=== PATIENT | male | born 1930 | race Caucasian/White ===

== ENCOUNTER → 2017-07-25 | Outpatient (CLI) | payer MEDICARE, OTHER ==
[~2017-07-25] MED LIST: ASPI81CH; ATORVASTATIN CA80 MG; CYAN1000 PO; ENAL20; ENAL5 PO; FOLI1 PO; LANS30EC; LANS30EC PO; MONTELUKAST SOD10 MG; Metoprolol Succ25 MG; NITR.4SL SL; PERIDEX15 ML MM; SPIHYD PO; TAMSULOSIN HCL0.4 MG
[2017-07-25 10:24] LABS: Anion Gap 6 mmol/L (6-16); Blood Urea Nitrogen 7 mg/dL (8-24); CO2, Blood 29 mmol/L (21-32); Calcium, Blood 8.6 mg/dL (8.5-10.1); Chloride, Blood 99 mmol/L (98-108); Creatinine, Blood 0.87 mg/dL (0.60-1.20); Glomerular Filtration Rate >60 (60-); Glucose, Blood 126 mg/dL (70-99); Sodium, Blood 134 mmol/L (136-145)
== END ==
LOC: LAB SHORT 10:14
PROVIDERS: Physician Assistant Surgical
DX: R60.0 Localized edema (principal)
CPT/HCPCS: 80048; 83880

== ENCOUNTER 2019-02-08 12:17 | Day surgery (SDC) | payer MEDICARE, OTHER ==
[~2019-02-08] VITALS: Ht 175.3 cm; Wt 66.5 kg
[~2019-02-08 12:17] MED LIST changes: +ATORVASTATIN CA80 MG PO; +Aspirin EC81 MG PO; +B-121000 MC2 PO; +Ipratropium Bro30 ML; +LEVSOD25 PO; +METO25ER PO; +OMEP20ER PO; +TAMS.4ER PO
[2019-02-08] MEDS ORDERED: FURO20 (13:02)
[2019-02-08] MEDS ORDERED: POTA10T (13:03)
== END 2019-02-08 14:42 | disposition home or self-care (01) ==
LOC: ORSCSDS 12:17
PROVIDERS: Ophthalmology
PROC: 08BP0ZZ Excision of Left Upper Eyelid, Open Approach (ICD-10-PCS; principal; 2019-02-08 13:45)
PROC: 08BN0ZZ Excision of Right Upper Eyelid, Open Approach (ICD-10-PCS; principal; 2019-02-08 13:45)
PROC: 080PXZZ Alteration of Left Upper Eyelid, External Approach (ICD-10-PCS; principal; 2019-02-08 13:45)
PROC: 080NXZZ Alteration of Right Upper Eyelid, External Approach (ICD-10-PCS; principal; 2019-02-08 13:45)
DX: H02.834 Dermatochalasis of left upper eyelid (principal); H02.831 Dermatochalasis of right upper eyelid; H02.423 Myogenic ptosis of bilateral eyelids; I25.10 Atherosclerotic heart disease of native coronary artery without angina pectoris; I10 Essential (primary) hypertension; Z87.891 Personal history of nicotine dependence; Z79.899 Other long term (current) drug therapy; Z79.82 Long term (current) use of aspirin
CPT/HCPCS: J2704; J3010

== ENCOUNTER 2021-02-14 12:39 | Emergency (ER) | payer OTHER, MEDICARE ==
[~2021-02-14] VITALS: Ht 175.3 cm; Wt 63.5 kg
[~2021-02-14 12:39] MED LIST changes: +FURO20; +POTA10T
[2021-02-14] MEDS ORDERED: ALBU90OI INH (13:15)
[2021-02-14] MEDS ORDERED: IPRATROPIUM BRO30 ML (13:17)
[2021-02-14] MEDS ORDERED: OXYM.05NI (13:18)
[2021-02-14] MEDS ORDERED: SPIR25 PO (13:19)
[2021-02-14] MEDS ORDERED: Norco 5-325 Ta1 EACH PO ×2 (15:38→15:45)
== END 2021-02-14 15:56 | disposition home or self-care (01) ==
LOC: ER 12:39
DX: S22.31XA Fracture of one rib, right side, initial encounter for closed fracture (principal); Z79.899 Other long term (current) drug therapy; Z79.82 Long term (current) use of aspirin; W11.XXXA Fall on and from ladder, initial encounter
CPT/HCPCS: 71101; 73030; 99283-25; A9270

== ENCOUNTER 2021-12-09 15:56 | Observation (INO) | payer OTHER, MEDICARE ==
[~2021-12-09] VITALS: Ht 172.7 cm; Wt 59.0 kg
[~2021-12-09 15:56] MED LIST changes: +ALBU90OI INH; -B-121000 MC2 PO; +B-121000 MC7 PO; +IPRATROPIUM BRO30 ML; +Norco 5-325 Ta1 EACH PO; +OXYM.05NI; +SPIR25 PO
[2021-12-09 17:03] LABS: BASOPHILS ABSOLUTE AUTO 0.01 K/mm3 (0.00-0.23); BASOPHILS PERCENT AUTO 0 % (0-2); EOSINOPHILS ABSOLUTE AUTO 0.05 K/mm3 (0.00-0.68); EOSINOPHILS PERCENT AUTO 1 % (0-6); Hematocrit 38.5 % (37.0-53.0); Hemoglobin 13.1 g/dL (13.5-17.5); IMMATURE GRAN ABSOLUTE AUTO 0.02 K/mm3 (0.00-0.10); IMMATURE GRAN PERCENT AUTO 0 % (0-1); LYMPHOCYTES ABSOLUTE AUTO 0.64 K/mm3 (0.84-5.20); LYMPHOCYTES PERCENT AUTO 8 % (21-46); MONOCYTES ABSOLUTE AUTO 0.96 K/mm3 (0.16-1.47); MONOCYTES PERCENT AUTO 12 % (4-13); Mean Corpuscular HGB 31.6 pg (26.0-34.0); Mean Corpuscular Volume 93 fL (80-100); Mean Platelet Volume 8.8 fL (9.1-12.4); NEUTROPHILS PERCENT AUTO 80 % (41-73); Platelet Count 101 K/mm3 (150-400); RDW Coefficient Variation 12.8 % (11.7-14.2); RDW Standard Deviation 43.8 fL (35.1-46.3); Red Blood Cell Count 4.14 M/mm3 (4.30-5.90); White Blood Cell Count 8.18 K/mm3 (4.00-11.30)
[2021-12-09 17:17] LABS: Albumin, Blood 3.2 g/dL (3.4-5.0); Albumin/Globulin Ratio 0.9 (0.8-1.8); Bilirubin, Total 1.1 mg/dL (0.1-1.0); Bun/Creatinine Ratio 16.2 (12.0-20.0); Calcium, Blood 8.4 mg/dL (8.5-10.1); Creatinine, Blood 0.74 mg/dL (0.60-1.20); Globulin, Blood 3.6 g/dL (2.2-4.0); Total Protein, Blood 6.8 g/dL (6.4-8.2)
[2021-12-09 18:37] LABS: Source, Urine Voided
[2021-12-09 18:50] LABS: Appearance, Urine Clear (Clear); Bilirubin, Urine Neg (Neg); Blood, Urine Neg (Neg); Color, Urine Yellow (P-Yellow); Glucose Qualitative, Urine Neg (Neg); Ketones, Urine Neg (Neg); Leukocyte Esterase, Urine Neg (Neg); Nitrite, Urine Neg (Neg); Protein, Urine 1+ (Neg); Urobilinogen, Urine 1+ (Normal)
[2021-12-09] MEDS ORDERED: ALEVAZOL56.7 G1 TOP (21:12)
[2021-12-09] MEDS ORDERED: ARTIFICIAL TEA1 EAC1 BOTHEYES (21:14)
[2021-12-09] MEDS ORDERED: Enalapril Maleat5 MG PO (21:15)
[2021-12-09] MEDS ORDERED: METO25ER PO (21:16)
[2021-12-09] MEDS ORDERED: Crestor20 MG PO (21:17)
[2021-12-09] MEDS ORDERED: Selenomax200 MCG PO (21:17)
[2021-12-09] MEDS ORDERED: THERA GESIC TOP (21:18)
[2021-12-09] MEDS ORDERED: TAMS.4ER PO (21:18)
[2021-12-09] MEDS ORDERED: VANICREAM TOP (21:19)
[2021-12-09 23:08] LABS: Source, Urine Clean Catch
[2021-12-09 23:11] LABS: Bilirubin, Urine Neg (Neg); Blood, Urine Neg (Neg); Glucose Qualitative, Urine Neg (Neg); Ketones, Urine 1+ (Neg); Leukocyte Esterase, Urine Neg (Neg); Nitrite, Urine Neg (Neg); Protein, Urine Neg (Neg); Urobilinogen, Urine 1+ (Normal)
[2021-12-10 00:19] LABS: Appearance, Urine Clear (Clear); Color, Urine Yellow (P-Yellow)
[2021-12-10 06:57] LABS: Creatine Kinase MB 3.6 ng/mL (0.0-3.6)
[2021-12-10 12:45] LABS: Creatine Kinase MB 2.7 ng/mL (0.0-3.6); Creatine Kinase MB Index 4.2 (0.0-4.0)
--- NOTE | 2021-12-10 14:17 | NUR ---
Echocardiogram performed.
--- NOTE | 2021-12-10 15:00 | NUR ---
ORTHOSTATICS: PATIENT TOLERATED MORNING ORTHOSTATICS WELL WITHOUT REPORT OF SHORTNESS OF BREATH OR DIZZINESS. ORTHOS FOLLOWS AT 09:00: LYING 105/70 HR OF 95; SITTING 94/64 WITH HR OF 88; STANDING 86/61 WITH HR OF 97. IN THE AFTERNOON AROUND 1500 , PT WORKED WITH THE PATIENT AND OBTAINED THE FOLLOWING ORTHOSTATIC VITALS: LYING 113/64 HR 104; SITTING 130/67 HR OF 106; STANDING 101/63 AND HR OF 112. THE PATIENT DENIED DIZZINESS OR SHORTNESS OF BREATH.
[2021-12-10] MEDS ORDERED: LEVSOD25 PO (15:37)
[2021-12-10] MEDS ORDERED: OMEP20ER PO (15:39)
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
--- NOTE | 2021-12-10 17:44 | NUR ---
END OF SHIFT SUMMARY: PATIENT DENIED DIZZINESS, SHORTNESS OF BREATH OR CHEST PAIN DURING THE SHIFT. PATIENT REPORTED FEELING MUSCLE TENDERNESS IN THE LEFT SHOULDER AND UPPER LEFT BACK. NO RADIATION OF PAIN. PATIENT CONVERTED TO NORMAL SINUS RHYTHM PER [place] AROUND [id number]. EKG COMPLETED VERIFYING NSR. PATIENT WORKED WITH PT AND OT WITHOUT SYMPTOMS OF HYPOTENSION OR AFIB. SEE NOTE FOR ORTHOSTATIC VITALS. PATIENT ABLE TO AMBULATE WITH FWW AND SBA. PATIENT REPORTS A REACTION THAT OCCURS SOMETIMES AFTER EATING. PATIENT REPORTS TEARING EYES AND IRRITATED THROAT. PATIENT REPORTS HE JUST HAS TO "WORK THROUGH IT". PATIENT HAD A DRY, IRRITATED COUGH UNTIL IT RESOLVED. DR. FARRELL AWARE. PATIENT LABILE AND UPSET ABOUT RECENT BREAKUP WITH GIRLFRIEND. SPRITUAL CARE ROUNDED ON PATIENT. PATIENT CALM THROUGH THE AFTERNOON.
[2021-12-11 04:11] LABS: BASOPHILS ABSOLUTE AUTO 0.02 K/mm3 (0.00-0.23); BASOPHILS PERCENT AUTO 0 % (0-2); EOSINOPHILS ABSOLUTE AUTO 0.27 K/mm3 (0.00-0.68); EOSINOPHILS PERCENT AUTO 4 % (0-6); Hemoglobin 13.2 g/dL (13.5-17.5); IMMATURE GRAN ABSOLUTE AUTO 0.02 K/mm3 (0.00-0.10); IMMATURE GRAN PERCENT AUTO 0 % (0-1); LYMPHOCYTES ABSOLUTE AUTO 1.11 K/mm3 (0.84-5.20); LYMPHOCYTES PERCENT AUTO 17 % (21-46); MONOCYTES ABSOLUTE AUTO 0.64 K/mm3 (0.16-1.47); MONOCYTES PERCENT AUTO 10 % (4-13); Mean Corpuscular HGB 31.7 pg (26.0-34.0); Mean Corpuscular HGB Conc 33.8 g/dL (31.5-36.5); Mean Corpuscular Volume 94 fL (80-100); Mean Platelet Volume 8.9 fL (9.1-12.4); NEUTROPHILS ABSOLUTE AUTO 4.66 K/mm3 (1.96-9.15); NEUTROPHILS PERCENT AUTO 69 % (41-73); Platelet Count 118 K/mm3 (150-400); RDW Coefficient Variation 12.8 % (11.7-14.2); RDW Standard Deviation 43.6 fL (35.1-46.3); Red Blood Cell Count 4.16 M/mm3 (4.30-5.90); White Blood Cell Count 6.72 K/mm3 (4.00-11.30)
--- NOTE | 2021-12-11 04:27 | NUR ---
SUMMARY PT SLEPT ON AND OFF T/O THE NIGHT. OOB MANY TIMES TO VOID WITH INCREASING URGENCY. NO OTHER ACUTE CHANGES NOTED. PT HAS NO SYNCOPAL EPISODES AND HAS DENIED ANY SOB OR DIZZINESS. PT RESTING QUIETLY IN ROOM WITH BED ALARM ON, CALL LIGHT IN REACH.
[2021-12-11 04:39] LABS: Bun/Creatinine Ratio 12.4 (12.0-20.0); Calcium, Blood 8.2 mg/dL (8.5-10.1); Creatinine, Blood 0.72 mg/dL (0.60-1.20); Potassium, Blood 3.7 mmol/L (3.5-5.5); Thyroid Stimulating Hormone 4.22 uIU/mL (0.360-4.800)
--- NOTE | 2021-12-11 05:50 | NUR ---
0545 PT IS HAVING DIFFICULTY VOIDING. PT TAKES FLOMAX AT HOME. PT ALSO HAD FREQUENT EPISODES OF SINUS TACH THROUGHOUT THE SHIFT. THE ST OCCURRED MOSTLY WHEN PT WOULD STAND TO VOID. THIS AM PULSE RATE IS HOLDING IN 100'S WHILE LAYING IN BED. TM
--- NOTE | 2021-12-11 06:27 | NUR ---
0627 [employer] CALLED AND INFORMED THAT PT IS SUSTAINING IN 130'S THIS AM. DR KOWALSKI WAS CALLED AND ORDERED IV FLUIDS. DR KOWALSKI STATES PT MOST LIKELY IN A-FIB. DR KOWALSKI ASKED TO HAVE TELEMETRY CONFIRM PT NOT IN A-FIB. WCTM AND PASS ON TO DAY SHIFT.
[2021-12-11] MEDS ORDERED: VITAMIN D31000 UNI1 PO (10:49)
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
--- NOTE | 2021-12-11 11:48 | NUR ---
PT DISCHARGED WITH [employer] ,FORGET ME NOT [facility]. PT AMBULATING IN ROOM WITH STANDBY ASSIST. VOIDING CLEAR YELLOW URINE, YAHAIRA REGULAR DIET. PT DENIES ANY THOUGHTS OF SUICIDE OR OF HARMING SELF. PT BECAME TEARFUL WHEN HE WAS TELLING ME THAT HE WILL NO LONGER BE ABLE TO DRIVE. PT IN ST PER TELE THOUGH RADIAL PULSE IS IRREGULAR. HR 130'S WHEN STANDS TO VOID. PATIENT STATES HE WILL STOP AT [facility] ON THE WAY HOME AND SCHEDULE FOLLOW UP APPT AND [employer]ING [employer] BLENDER PRESCRIPTIONS
== END 2021-12-11 11:44 | disposition home or self-care (01) ==
LOC: ER 15:56 → MEDS 15:57
PROVIDERS: Emergency Medicine; Internal Medicine; ADMIT Internal Medicine
DX: R55 Syncope and collapse (principal); I48.91 Unspecified atrial fibrillation; I45.10 Unspecified right bundle-branch block; E86.0 Dehydration; Z72.3 Lack of physical exercise; I10 Essential (primary) hypertension; F41.9 Anxiety disorder, unspecified; E03.9 Hypothyroidism, unspecified; E87.1 Hypo-osmolality and hyponatremia; G31.1 Senile degeneration of brain, not elsewhere classified; Z79.82 Long term (current) use of aspirin; Z95.1 Presence of aortocoronary bypass graft; Z87.891 Personal history of nicotine dependence; Z95.2 Presence of prosthetic heart valve
CPT/HCPCS: 36415; 70450; 71045; 80048; 80053; 81003; 82550; 82553; 83880; 84443; 84484; 85025; 93005; 93010; 93306; 97110; 97116; 97162; 97165; 97530; 99285-25; A9270; G0378; J7030